=== PATIENT | female | born 1960 | race Caucasian/White ===

== ENCOUNTER 2016-04-22 11:09 | Emergency (ER) | payer MEDICAID ==
[2013-12-31 14:47] VITALS: BMI 22.4
[~2016-04-22 11:09] MED LIST: CLARITIN 10 MG10 MG PO; ECOTRIN325 MG PO; FLUTICASONE PRO16 GM NS; LISINOPRIL5 MG GT; LISINOPRIL5 MG PO; NORVASC5 MG PO; TENORMIN25 MG PO; TRAZODONE HCL50 MG PO; XANAX1 MG PO; [UNRECOGNIZED DRUG - REMARK]
[2016-04-22 11:39] LABS: BASOPHILS 0.2 % (0.0-2.0); EOSINOPHILS 2.5 % (0-7); HEMATOCRIT 38.7 % (36.0-48.0); HEMOGLOBIN 12.4 g/dL (12-16); IMMATURE GRANULOCYTES 1.4 % (0-5); LYMPHOCYTES 20.9 % (15-50); MCH 29.7 pg (26.0-34.0); MCV 92.8 fL (80.0-100.0); MONOCYTES 8.2 % (2-11); NEUTROPHILS 66.8 % (40-80); RBC 4.17 10x6/uL (4.00-5.40); RDW 14.1 % (11.5-14.5); WBC 11.8 10x3/uL (4.8-10.8)
[2016-04-22 11:40] LABS: PLATELET COUNT 221 10x3/uL (130-400)
[2016-04-22 11:55] LABS: ALBUMIN 2.4 g/dL (3.4-5.0); ANION GAP 11.1 mmol/L (8-16); BILIRUBIN - TOTAL 0.15 mg/dL (0.2-1.3); CALCIUM 9.1 mg/dL (8.5-10.1); CARBON DIOXIDE 28.3 mmol/L (21.0-32.0); CREATININE - SERUM 0.9 mg/dL (0.6-1.3); POTASSIUM - SERUM 4.4 mmol/L (3.5-5.1); PROTEIN - SERUM 7.4 g/dL (6.4-8.2)
[2016-04-22 13:21] LABS: APPEARANCE HAZY (CLEAR); BACTERIA MODERATE /hpf (NONE SEEN); BILIRUBIN NEGATIVE (NEGATIVE); COLOR YELLOW (YELLOW); GLUCOSE NEGATIVE (NEGATIVE); KETONE NEGATIVE (NEGATIVE); LEUKOCYTE ESTERASE 1+ (NEGATIVE); MUCUS <1+ /lpf (NONE SEEN); NITRITE NEGATIVE (NEGATIVE); PROTEIN NEGATIVE (NEGATIVE); RED CELLS - URINE 0-5 /hpf (0-5); SPECIFIC GRAVITY 1.015 (1.005-1.020); UROBILINOGEN NORMAL (NORMAL); WHITE CELLS - URINE 25-50 /hpf (0-5)
== END 2016-04-22 18:04 | disposition home or self-care (01) ==
LOC: D.ER 11:09
PROVIDERS: Emergency Medicine
DX: R55 Syncope and collapse (principal); Z86.73 Personal history of transient ischemic attack (TIA), and cerebral infarction without residual deficits; F32.9 Major depressive disorder, single episode, unspecified

== ENCOUNTER 2018-03-19 15:54 | Inpatient (IN) | payer MEDICAID ==
[~2018-03-19] VITALS: Ht 154.9 cm; Wt 69.9 kg
--- NOTE | ~2018-03-19 | MORECARE ---
CASE MANAGEMENT DISCHARGE SUMMARY PATIENT: LENY MAI UNIT: [id number] ADM DATE: 03/19/18 AGE: 57 : 58 SEX: F ROOM/BED: D.2220 AUTHOR: AZALEA,DOC PHYSICIAN: REFERRING PHYSICIAN: KENN FRANKLIN MD DATE OF SERVICE: 03/26/18 Discharge Plan Patient Name: LENY MAI Facility: [facility]:[place] : 1960 Planned Disposition: [facility] MCR Anticipated Discharge Date: Discharge Date: 03/25/2018 Expected LOS: 0 Initial Reviewer: [email or web address] Initial Review Date: 03/19/2018 Generated: 03/26/18 4:02 pm Comments DCP- Discharge Planning Updated by [email or web address]: Mildred Marlow on 03/25/18 2:[address] LATE ENTRY 0800 RICH FROM [facility] NOTIFIED SHE WOULD BE ADMITTING LENY MAI WHEN SHE WAS TRANSFERED TO [facility]. 0845 CM ADVISED PRIMARY NURSE THAT HOSPICE WOULD ADMIT TODAY. SHE WILL CALL REPORT AND FACILITATE TRANSFER BACK TO FACILITY. [facility] TO BE NOTIFIED WHEN PATIENT IS DISCHARGED. 1345 CM RECIVED TELEPHONE CALL FROM RICH. SHE WAS GOING TO THE INPATIENT UNIT THEN PLANNED TO GO TO [facility]. CM CALLED MED/ SURG. PATIENT HAD BEEN DISCHARGED AT 12 NOON. CM ADVISED HOSPICE NURSE. SHE WILL ADMIT PATIENT AFTER HER ROUNDS AT THE INPATIENT UNIT. 1410 TC TO [facility]. CM SPOKE WITH CASH AT [facility] TO ADVISE OF PLANNED HOSPICE ADMIT VISIT. DCP- Discharge Planning Updated by [email or web address]: Mildred Marlow on 03/24/18 6:[address] LATE ENTRY 1230 DR [facility] ADVISED THAT SHE HAD DISCUSSED HOSPICE WITH THE PATIENT AND WAS ORDERING A CONSULT. PLAN IS TO RETURN TO THE FACILITY, [facility] W/ [facility]. TC TO [facility]. REFERRAL GIVEN . PACKET PREPARED. NURSE CALLED BACK TO SAY THE [facility] ANSHUL WOULD BE IN TO SPEAK WITH THE PATIENT AND FAMILY TODAY. 1730- THE ANSHUL SPOKE WITH THECM. HE HAD VISITED WITH THE PATIENT AND FAMILY. EXPLAINED HOSPICE AND ANSWERED ALL OF THEIR QUESTIONS. THE PATIENT WOULD BE DISCHARGED BACK TO FACILITY AND [facility] WOULD OBTAIN LEGALS AT THE FACILITY. THE [facility] STAFF TO CALL [facility] WHEN PATIENT IS DISCHARGED. THEY WILL MEET HER AT [facility]. DCP- Discharge Planning Updated by [email or web address]: Michelle Casiano on 03/21/18 11:[address] Patient Name: LENY MAI Admission Status: ER Accout number: [id number] Admission Date: 03-19-2018 : 1960 Admission Diagnosis: Attending: KENN FRANKLIN Current LOS: 2 Anticipated DC Date: Planned Disposition: Account Specialist Care Fac [facility] Primary Insurance: MEDICAID [place] Discharge Planning Comments: CM met with patient to assess discharge planning needs. Patient stated that she is a skilled nursing resident at [facility]. She plans to return there at discharge . She has all the help and need there. She stated that she is a 2 person assist to get into the wheelchair. CM will continue to follow and assist with DC planning as needed Scrum Master: Michelle Casiano DCPIA - Discharge Planning Initial Assessment Updated by [email or web address]: Michelle Casiano on 03/21/18 12:41 pm * Is the patient Alert and Oriented? Yes * PCP [facility] * Pharmacy [facility] * Preadmission Environment [facility] * Facility Name [facility] * ADLs Partial Dependent * Partial ADLs (Assistance needed) Ambulation Bathing Dressing Medication Management Toileting Transfers * List name and contact numbers for known caregivers / representatives who currently or will assist patient after discharge: ROMAIN MAI (DAUGHTER) [phone] GUADALUPE KENRS (MOTHER) * Verbal permission to speak to the caregivers and representatives has been obtained from the patient. N/A * Additional services required to return to the preadmission environment? No * Can the patient safely return to the preadmission environment? Yes * Has this patient been hospitalized within the prior 30 days at any hospital? No Last DP export: 03/25/18 3:01 Patient Name: LENY MAI Page [id number] at 1502 All edits/amendments must be made on the electronic document DICTATION DATE: 03/26/18 1502 CREDIT COLLECTIONS SPECIALIST: KIM 03/26/18 1502 RPT#: [id number] DC DATE:03/25/18 STATUS: DIS IN [facility] [address] [place] [address] END OF REPORT
--- NOTE | ~2018-03-19 | MORECARE ---
CASE MANAGEMENT DISCHARGE SUMMARY PATIENT: LENY MAI UNIT: [id number] ADM DATE: 03/19/18 AGE: 57 : 58 SEX: F ROOM/BED: D.2220 AUTHOR: AZALEA,DOC PHYSICIAN: REFERRING PHYSICIAN: KENN FRANKLIN MD DATE OF SERVICE: 03/25/18 Discharge Plan Patient Name: LENY MAI Facility: [facility]:[place] : 1960 Planned Disposition: Retirement Care Fac MCR Anticipated Discharge Date: Discharge Date: 03/25/2018 Expected LOS: Initial Reviewer: [email or web address] Initial Review Date: 03/19/2018 Generated: 03/25/18 5:01 pm Comments DCP- Discharge Planning Updated by [email or web address]: Mildred Marlow on 03/25/18 2:[address] LATE ENTRY [address] [facility] NOTIFIED SHE WOULD BE ADMITTING LENY MAI WHEN SHE WAS TRANSFERED TO [facility]. 0845 CM ADVISED PRIMARY NURSE THAT HOSPICE WOULD ADMIT TODAY. SHE WILL CALL REPORT AND FACILITATE TRANSFER BACK TO FACILITY. [facility] TO BE NOTIFIED WHEN PATIENT IS DISCHARGED. 1345 CM RECIVED TELEPHONE CALL FROM RICH. SHE WAS GOING TO THE INPATIENT UNIT THEN PLANNED TO GO TO [facility]. CM CALLED MED/ SURG. PATIENT HAD BEEN DISCHARGED AT 12 NOON. CM ADVISED HOSPICE NURSE. SHE WILL ADMIT PATIENT AFTER HER ROUNDS AT THE INPATIENT UNIT. 1410 TC TO [facility]. CM SPOKE WITH CASH AT [facility] TO ADVISE OF PLANNED HOSPICE ADMIT VISIT. DCP- Discharge Planning Updated by [email or web address]: Mildred Marlow on 03/24/18 6:[address] LATE ENTRY 1230 DR [facility] ADVISED THAT SHE HAD DISCUSSED HOSPICE WITH THE PATIENT AND WAS ORDERING A CONSULT. PLAN IS TO RETURN TO THE FACILITY, [facility] W/ [facility]. TC TO [facility]. REFERRAL GIVEN . PACKET PREPARED. NURSE CALLED BACK TO SAY THE [facility] ANSHUL WOULD BE IN TO SPEAK WITH THE PATIENT AND FAMILY TODAY. 1730- THE ANSHUL SPOKE WITH THECM. HE HAD VISITED WITH THE PATIENT AND FAMILY. EXPLAINED HOSPICE AND ANSWERED ALL OF THEIR QUESTIONS. THE PATIENT WOULD BE DISCHARGED BACK TO FACILITY AND [facility] WOULD OBTAIN LEGALS AT THE FACILITY. THE [facility] STAFF TO CALL [facility] WHEN PATIENT IS DISCHARGED. THEY WILL MEET HER AT [facility]. DCP- Discharge Planning Updated by [id number]: Michelle Casiano on 03/21/18 11:[address] Patient Name: LENY MAI Admission Status: ER Accout number: [id number] Admission Date: 03-19-2018 : 1960 Admission Diagnosis: Attending: KENN FRANKLIN Current LOS: 2 Anticipated DC Date: Planned Disposition: Retirement Care Fac [facility] Primary Insurance: MEDICAID [place] Discharge Planning Comments: CM met with patient to assess discharge planning needs. Patient stated that she is a fdc resident at [facility]. She plans to return there at discharge . She has all the help and need there. She stated that she is a 2 person assist to get into the wheelchair. CM will continue to follow and assist with DC planning as needed Knitted Garment Finisher: Michelle Casiano DCPIA - Discharge Planning Initial Assessment Updated by [email or web address]: Michelle Casiano on 03/21/18 12:41 pm * Is the patient Alert and Oriented? Yes * PCP [facility] * Pharmacy [facility] * Preadmission Environment [facility] * Facility Name [facility] * ADLs Partial Dependent * Partial ADLs (Assistance needed) Ambulation Bathing Dressing Medication Management Toileting Transfers * List name and contact numbers for known caregivers / representatives who currently or will assist patient after discharge: ROMAIN MAI (DAUGHTER) [phone] GUADALUPE KERNS (MOTHER) * Verbal permission to speak to the caregivers and representatives has been obtained from the patient. N/A * Additional services required to return to the preadmission environment? No * Can the patient safely return to the preadmission environment? Yes * Has this patient been hospitalized within the prior 30 days at any hospital? No Last DP export: 03/24/18 6:45 Patient Name: LENY MAI Page [id number] at 1601 All edits/amendments must be made on the electronic document DICTATION DATE: 03/25/181599 BEEF KILLER: DM 03/25/181599 RPT#: [id number] DC DATE:03/25/18 STATUS: DIS IN [facility] [address] [place] [address] END OF REPORT
--- NOTE | ~2018-03-19 | CN ---
PATIENT NAME:LENY MILLER MEDICAL RECORD: [id number] : 58 LOCATION:D.MS [address] ADMIT DATE: 03/19/18 ACCOUNT: [id number] CONSULTING PHYSICIAN: TREE FERRARO MD REFERRING PHYSICIAN: INDRA SHANNON MD DATE OF CONSULTATION: 03/20/2018 CONSULT REQUESTING PHYSICIAN: Indra Shannon MD REASON FOR CONSULTATION: Hilar mass, mediastinal lymphadenopathy. HISTORY OF PRESENT ILLNESS: Ms. Miller is a 57-year-old female who has a history of CVA, brought into the ER for headache. She has a regular chest radiograph, which showed hilar mass confirmed by the CT scan of the chest. The patient denies any chest pain. No night sweats, no weight loss, no cough, no hemoptysis. REVIEW OF SYSTEMS: As in history of present illness. PAST MEDICAL HISTORY: 1. CVA. 2. Hypertension. 3. Coronary artery disease. 4. Gastroesophageal reflux disease. 5. Constipation. 6. Rheumatoid arthritis. 7. Fibromyalgia. 8. Chronic pain. 9. Anxiety, depression. PAST SURGICAL HISTORY: She had , hysterectomy. ALLERGIES: SHE IS ALLERGIC TO PENICILLIN, SULFA AND TRIMETHOPRIM. MEDICATIONS: [employer] is reviewed. PERSONAL AND SOCIAL HISTORY: She is a current everyday smoker. FAMILY HISTORY: Noncontributory. PHYSICAL EXAMINATION: GENERAL: Now, the patient is lying comfortably in bed. She is not in acute distress. VITAL SIGNS: The blood pressure is 185-215/121, pulse is 85, respiration is 18, temperature 98.4, and SPO2 is 92% on room air. HEENT: Conjunctivae are pink. Sclerae are not icteric. NECK: Neck is supple, no JVD. CHEST: The chest excursion is minimal on both sides. There is no wheeze, no rales. HEART: Rhythm regular, normal sound, no murmur. ABDOMEN: The abdomen is soft, bowel sounds present. No hepatosplenomegaly. RECTAL: Deferred. EXTREMITIES: No cyanosis, no clubbing. There is no pedal edema. CENTRAL NERVOUS SYSTEM: She has left side hemiplegia. CONSULT REPORT [id number] LENY MILLER CT scan of the chest: There is mediastinal lymphadenopathy and right hilar mass. IMPRESSION: 1. Hilar mass, rule out malignant process. 2. Mediastinal lymphadenopathy. 3. Headache. 4. Uncontrolled hypertension. 5. Chronic CKD. RECOMMENDATION: 1. I will check the EDVIN level. Check the fungal serology. 2. Consult Dr. Gibbons for possible mediastinoscopy. 3. Dr. Shannon, thank you for involving me in the care of Ms. Miller. TRANSINT:[id number] Voice Confirmation ID: [id number] DOCUMENT ID: [id number] TREE FERRARO MD at 1339 CC: [id number] DICTATION DATE: 03/20/18 184 BUSINESS ANALYTICS DIRECTOR: 03/20/18 192 ADM IN [facility] [address] [place] [address]
--- NOTE | ~2018-03-19 | MORECARE ---
CASE MANAGEMENT DISCHARGE SUMMARY PATIENT: LENY MAI UNIT: [id number] ADM DATE: 03/19/18 AGE: 57 : 58 SEX: F ROOM/BED: D.2220 AUTHOR: AZALEA,DOC PHYSICIAN: REFERRING PHYSICIAN: KENN FRANKLIN MD DATE OF SERVICE: 03/24/18 Discharge Plan Patient Name: LENY MAI Facility: [facility]:[place] : 1960 Planned Disposition: [facility] Care Fac [facility] Anticipated Discharge Date: Discharge Date: Expected LOS: Initial Reviewer: [email or web address] Initial Review Date: 03/19/2018 Generated: 03/24/18 8:45 pm Comments DCP- Discharge Planning Updated by [email or web address]: Mildred Marlow on 03/24/18 6:[address] LATE ENTRY 1230 DR [facility] ADVISED THAT SHE HAD DISCUSSED HOSPICE WITH THE PATIENT AND WAS ORDERING A CONSULT. PLAN IS TO RETURN TO THE FACILITY, [facility] W/ [facility]. TC TO [facility]. REFERRAL GIVEN . PACKET PREPARED. NURSE CALLED BACK TO SAY THE [facility] ANSHUL WOULD BE IN TO SPEAK WITH THE PATIENT AND FAMILY TODAY. 1730- THE ANSHUL SPOKE WITH THECM. HE HAD VISITED WITH THE PATIENT AND FAMILY. EXPLAINED HOSPICE AND ANSWERED ALL OF THEIR QUESTIONS. THE PATIENT WOULD BE DISCHARGED BACK TO FACILITY AND [facility] WOULD OBTAIN LEGALS AT THE FACILITY. THE [facility] STAFF TO CALL [facility] WHEN PATIENT IS DISCHARGED. THEY WILL MEET HER AT [facility]. DCP- Discharge Planning Updated by [id number]: Michelle Casiano on 03/21/18 11:[address] Patient Name: LENY MAI Admission Status: ER Accout number: [id number] Admission Date: 03-19-2018 : 1960 Admission Diagnosis: Attending: KENN FRANKLIN Current LOS: 2 Anticipated DC Date: Planned Disposition: [facility] Care Fac [facility] Primary Insurance: MEDICAID [place] Discharge Planning Comments: CM met with patient to assess discharge planning needs. 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. She plans to return there at discharge . She has all the help and need there. She stated that she is a 2 person assist to get into the wheelchair. CM will continue to follow and assist with DC planning as needed Six Pack Packer: Michelle Casiano DCPIA - Discharge Planning Initial Assessment Updated by [email or web address]: Michelle Casiano on 03/21/18 12:41 pm * Is the patient Alert and Oriented? Yes * PCP [place] * Pharmacy [facility] * Preadmission Environment [facility] * Facility Name [facility] * ADLs Partial Dependent * Partial ADLs (Assistance needed) Ambulation Bathing Dressing Medication Management Toileting Transfers * List name and contact numbers for known caregivers / representatives who currently or will assist patient after discharge: ROMAIN MAI (DAUGHTER) [phone] GUADALUPE KERNS (MOTHER) * Verbal permission to speak to the caregivers and representatives has been obtained from the patient. N/A * Additional services required to return to the preadmission environment? No * Can the patient safely return to the preadmission environment? Yes * Has this patient been hospitalized within the prior 30 days at any hospital? No Last DP export: 03/21/18 11:53 Patient Name: LENY MAI Page [id number] at 1945 All edits/amendments must be made on the electronic document DICTATION DATE: 03/24/181944 STICKER HAND: KIM 03/24/181944 RPT#: [id number] DC DATE: STATUS: ADM IN [facility] [address] [place] [address] END OF REPORT
--- NOTE | ~2018-03-19 | MORECARE ---
CASE MANAGEMENT DISCHARGE SUMMARY PATIENT: LENY MAI UNIT: [id number] ADM DATE: 03/19/18 AGE: 57 : 58 SEX: F ROOM/BED: D.2220 AUTHOR: JODIE TRISTAN PHYSICIAN: REFERRING PHYSICIAN: KENN FRANKLIN MD DATE OF SERVICE: 03/21/18 Discharge Plan Patient Name: LENY MAI Facility: [facility]:[place] : 1960 Planned Disposition: [facility] Care Fac MCR Anticipated Discharge Date: Discharge Date: Expected LOS: Initial Reviewer: [email or web address] Initial Review Date: 03/19/2018 Generated: 03/21/18 1:45 pm DCPIA - Discharge Planning Initial Assessment Updated by [email or web address]: Michelle Casiano on 03/21/18 12:41 pm * Is the patient Alert and Oriented? Yes * PCP [place] * Pharmacy [facility] * Preadmission Environment [facility] * Facility Name [facility] * ADLs Partial Dependent * Partial ADLs (Assistance needed) Ambulation Bathing Dressing Medication Management Toileting Transfers * List name and contact numbers for known caregivers / representatives who currently or will assist patient after discharge: ROMAIN MAI (DAUGHTER) [phone] GUADALUPE KERNS (MOTHER) * Verbal permission to speak to the caregivers and representatives has been obtained from the patient. N/A * Additional services required to return to the preadmission environment? No * Can the patient safely return to the preadmission environment? Yes * Has this patient been hospitalized within the prior 30 days at any hospital? No Patient Name: LENY MAI Page 75016 at 1245 All edits/amendments must be made on the electronic document DICTATION DATE: 03/21/18 1245 SHELLFISH GROWER: KIM 03/21/18 1245 RPT#: [id number] DC DATE: STATUS: ADM IN [facility] [address] [place] [address] END OF REPORT
--- NOTE | ~2018-03-19 | MORECARE ---
CASE MANAGEMENT DISCHARGE SUMMARY PATIENT: LENY MAI UNIT: [id number] ADM DATE: 03/19/18 AGE: 57 : 58 SEX: F ROOM/BED: D.2220 AUTHOR: AZALEA,DOC PHYSICIAN: REFERRING PHYSICIAN: KENN FRANKLIN MD DATE OF SERVICE: 03/21/18 Discharge Plan Patient Name: LENY MAI Facility: [facility]:[place] : 1960 Planned Disposition: Jail Care Fac [facility] Anticipated Discharge Date: Discharge Date: Expected LOS: Initial Reviewer: [email or web address] Initial Review Date: 03/19/2018 Generated: 03/21/18 1:53 pm Comments DCP- Discharge Planning Updated by [email or web address]: Michelle Casiano on 03/21/18 11:[address] Patient Name: LENY MAI Admission Status: ER Accout number: [id number] Admission Date: 03-19-2018 : 1960 Admission Diagnosis: Attending: KENN FRANKLIN Current LOS: 2 Anticipated DC Date: Planned Disposition: Pig Machine Operator Care [facility] Primary Insurance: MEDICAID [place] Discharge Planning Comments: CM met with patient to assess discharge planning needs. 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 She plans to return there at discharge . She has all the help and need there. She stated that she is a 2 person assist to get into the wheelchair. CM will continue to follow and assist with DC planning as needed Business Banking Manager: Michelle Casiano DCPIA - Discharge Planning Initial Assessment Updated by [email or web address]: Michelle Casiano on 03/21/18 12:41 pm * Is the patient Alert and Oriented? Yes * PCP [place] * Pharmacy [facility] * Preadmission Environment [facility] * Facility Name [facility] * ADLs Partial Dependent * Partial ADLs (Assistance needed) Ambulation Bathing Dressing Medication Management Toileting Transfers * List name and contact numbers for known caregivers / representatives who currently or will assist patient after discharge: ROMAIN MAI (DAUGHTER) [phone] GUADALUPE KERNS (MOTHER) * Verbal permission to speak to the caregivers and representatives has been obtained from the patient. N/A * Additional services required to return to the preadmission environment? No * Can the patient safely return to the preadmission environment? Yes * Has this patient been hospitalized within the prior 30 days at any hospital? No Last DP export: 03/21/18 11:45 Patient Name: LENY MAI Page [id number] at 1253 All edits/amendments must be made on the electronic document DICTATION DATE: 03/21/181251 RESIDENT ASSOCIATE: KIM 03/21/181251 RPT#: [id number] DC DATE: STATUS: ADM IN [facility] [address] [place] [address] END OF REPORT
[2018-03-19] MEDS ORDERED: ACETAMINOPHEN325 MG PO (16:04)
[2018-03-19] MEDS ORDERED: XANAX1 MG PO (16:05)
[2018-03-19] MEDS ORDERED: FEXOFENADINE HC60 MG PO (16:05)
[2018-03-19] MEDS ORDERED: PROBIOTIC1 EAC1 PO (16:05)
[2018-03-19] MEDS ORDERED: ABILIFY2 MG PO (16:06)
[2018-03-19] MEDS ORDERED: CELEXA40 MG PO (16:06)
[2018-03-19] MEDS ORDERED: TENORMIN25 MG PO (16:06)
[2018-03-19] MEDS ORDERED: HEALTHYLAX17 GM PO (16:07)
[2018-03-19] MEDS ORDERED: CATAPRES0.1 MG PO (16:07)
[2018-03-19] MEDS ORDERED: ESTRACE1 MG PO (16:08)
[2018-03-19] MEDS ORDERED: FLUTICASONE PRO16 GM NASAL (16:08)
[2018-03-19] MEDS ORDERED: LASIX40 MG PO (16:09)
[2018-03-19] MEDS ORDERED: GABAPENTIN100 MG PO (16:09)
[2018-03-19] MEDS ORDERED: NORCO 10-325 TA1 TAB PO (16:10)
[2018-03-19] MEDS ORDERED: LISINOPRIL10 MG PO (16:10)
[2018-03-19] MEDS ORDERED: PRAVACHOL20 MG PO (16:11)
[2018-03-19] MEDS ORDERED: K-DUR20 MEQ PO (16:11)
[2018-03-19] MEDS ORDERED: ASCORBIC ACID500 MG PO (16:12)
[2018-03-19] MEDS ORDERED: ZANAFLEX4 MG PO (16:12)
[2018-03-19] MEDS ORDERED: VITAMIN D31000 UNIT PO (16:13)
[2018-03-19 16:53] LABS: BASOPHILS 0.2 % (0-2); EOSINOPHILS 3.8 % (0-7); HEMATOCRIT 41.8 % (36.0-48.0); HEMOGLOBIN 13.7 g/dL (12-16); IMMATURE GRANULOCYTES 0.6 % (0-5); MCH 30.7 pg (26.0-34.0); MCHC 32.8 g/dL (31.0-37.0); MCV 93.7 fL (80.0-100.0); MEAN PLATELET VOLUME 9.1 fL (7.4-10.4); MONOCYTES 8.8 % (2-11); NEUTROPHILS 47.6 % (40-80); RBC 4.46 10x6/uL (4.00-5.40); RDW 15.1 % (11.5-14.5); WBC 10.8 10x3/uL (4.8-10.8)
[2018-03-19 17:05] LABS: ALKALINE PHOSPHATASE 88 U/L (46-116); ALT (SGPT) 24 U/L (10-68); BILIRUBIN - TOTAL 0.38 mg/dL (0.2-1.3); CALC OSMOLALITY 282 mosm/kg (275-300); CALCIUM 8.7 mg/dL (8.5-10.1); CARBON DIOXIDE 27.7 mmol/L (21.0-32.0); CHLORIDE - SERUM 105 mmol/L (98-107); CREATININE - SERUM 1.5 mg/dL (0.6-1.3); GLUCOSE 90 mg/dL (74-106); SODIUM 141 mmol/L (136-145); UREA NITROGEN 17 mg/dL (7-18); eGFR NON AFRICAN AMERICAN 38 mL/min (90-120)
[2018-03-19 17:10] LABS: CREATINE KINASE 28 UL (21-215); TROPONIN-I < 0.017 ng/mL (0.000-0.060)
[2018-03-19 17:18] LABS: PLATELET COUNT 370 10x3/uL (130-400)
[2018-03-19 18:20] LABS: CKMB 2.2 U/L (0.0-3.6)
[2018-03-19 23:03] VITALS: BP 185/68; BMI 29.1
[2018-03-20] VITALS: BP 179/112
[2018-03-20 04:15] VITALS: BP 196/100
[2018-03-20 08:05] VITALS: BP 215/121
[2018-03-20 12:02] VITALS: BP 162/92
[2018-03-20 13:59] VITALS: BMI 29.1
[2018-03-20 16:21] VITALS: BP 131/71
[2018-03-20 21:01] VITALS: BP 162/80
[2018-03-21 01:39] VITALS: BP 110/80
[2018-03-21 05:58] VITALS: BP 86/47
[2018-03-21 09:38] VITALS: BP 136/78
[2018-03-21 11:14] LABS: INR 1.03 (0.85-1.17)
[2018-03-21 12:37] VITALS: Ht 154.9 cm; Wt 69.9 kg
[2018-03-21 13:03] VITALS: BP 148/89
[2018-03-21 17:15] VITALS: BP 172/84
[2018-03-21 21:13] VITALS: BP 192/98
[2018-03-22 01:17] VITALS: BP 189/93
[2018-03-22 04:33] VITALS: BP 193/96
[2018-03-22 05:29] LABS: BASOPHILS 0.2 % (0-2); EOSINOPHILS 3.4 % (0-7); HEMATOCRIT 42.6 % (36.0-48.0); IMMATURE GRANULOCYTES 0.1 % (0-5); LYMPHOCYTES 45.6 % (15-50); MCH 30.6 pg (26.0-34.0); MCHC 32.9 g/dL (31.0-37.0); MCV 93.2 fL (80.0-100.0); MEAN PLATELET VOLUME 9.2 fL (7.4-10.4); MONOCYTES 8.4 % (2-11); NEUTROPHILS 42.3 % (40-80); PLATELET COUNT 417 10x3/uL (130-400); RBC 4.57 10x6/uL (4.00-5.40); RDW 15.1 % (11.5-14.5); WBC 10.1 10x3/uL (4.8-10.8)
[2018-03-22 05:47] LABS: ANION GAP 14.1 mmol/L (8-16); CALCIUM 8.5 mg/dL (8.5-10.1); CARBON DIOXIDE 27.5 mmol/L (21.0-32.0); POTASSIUM - SERUM 3.6 mmol/L (3.5-5.1)
[2018-03-22 05:50] LABS: APTT 34.9 SECONDS (22.8-39.4); PROTIME 12.7 SECONDS (11.6-15.0)
[2018-03-22 09:12] VITALS: BP 235/120
[2018-03-22 12:58] VITALS: BP 121/64
[2018-03-22 15:17] VITALS: BP 151/97
[2018-03-22 19:00] VITALS: BP 125/74
[2018-03-23 00:58] VITALS: BP 115/67
[2018-03-23 03:10] LABS: ANGIOTENSIN CONVERTING ENZYME < 15 U/L (14-82)
[2018-03-23 03:59] LABS: BASOPHILS 0.2 % (0-2); EOSINOPHILS 0.9 % (0-7); HEMATOCRIT 41.6 % (36.0-48.0); HEMOGLOBIN 13.9 g/dL (12-16); IMMATURE GRANULOCYTES 0.2 % (0-5); LYMPHOCYTES 40.4 % (15-50); MCH 30.8 pg (26.0-34.0); MCHC 33.4 g/dL (31.0-37.0); MEAN PLATELET VOLUME 9.1 fL (7.4-10.4); NEUTROPHILS 50.3 % (40-80); PLATELET COUNT 403 10x3/uL (130-400); RBC 4.52 10x6/uL (4.00-5.40); RDW 15.2 % (11.5-14.5); WBC 10.5 10x3/uL (4.8-10.8)
[2018-03-23 04:16] LABS: ANION GAP 15.4 mmol/L (8-16); CARBON DIOXIDE 26.4 mmol/L (21.0-32.0); CREATININE - SERUM 1.1 mg/dL (0.6-1.3); POTASSIUM - SERUM 3.8 mmol/L (3.5-5.1)
[2018-03-23 05:44] VITALS: BP 138/75
[2018-03-23 09:00] VITALS: BP 176/92
[2018-03-23 13:13] VITALS: BP 139/75
[2018-03-23 16:39] VITALS: BP 128/73
[2018-03-23 20:00] VITALS: BP 128/71
[2018-03-24] VITALS: BP 117/7
[2018-03-24 04:00] VITALS: BP 135/78
[2018-03-24 08:32] VITALS: BP 160/85
[2018-03-24 14:15] VITALS: BP 165/85
[2018-03-24 16:20] VITALS: BP 135/91
[2018-03-24 20:00] VITALS: BP 99/58
[2018-03-25] VITALS: BP 155/80
[2018-03-25 04:00] VITALS: BP 142/77
[2018-03-25] MEDS ORDERED: Lisinopril PO (07:00)
[2018-03-25] MEDS ORDERED: CATAPRES0.3 MG PO (07:01)
[2018-03-25] MEDS ORDERED: LOPRESSOR25 MG PO (07:01)
[2018-03-25 08:15] VITALS: BP 146/77
[2018-03-25 15:09] LABS: FUNGAL - ASP FLAVUS Negative (Neg:<1:1); FUNGAL - ASP NIGER Negative (Neg:<1:1); FUNGAL - ASPER FUMIGATUS Negative (Neg:<1:1)
== END 2018-03-25 12:06 | disposition home health service (06) | DRG 181 ==
LOC: D.ER 15:54 → D.MS 20:34
PROVIDERS: Family Medicine; Internal Medicine Pulmonary Disease; Radiology Vascular & Interventional Radiology; Specialist
DX: C7A.090 Malignant carcinoid tumor of the bronchus and lung (principal); I69.154 Hemiplegia and hemiparesis following nontraumatic intracerebral hemorrhage affecting left non-dominant side; N39.0 Urinary tract infection, site not specified; I10 Essential (primary) hypertension; I69.16 Other paralytic syndrome following nontraumatic intracerebral hemorrhage; I25.10 Atherosclerotic heart disease of native coronary artery without angina pectoris; E78.5 Hyperlipidemia, unspecified; M06.9 Rheumatoid arthritis, unspecified; Z72.0 Tobacco use; F32.9 Major depressive disorder, single episode, unspecified; Z74.01 Bed confinement status; M62.3 Immobility syndrome (paraplegic)